=== PATIENT | male | born 1960 | race Caucasian/White ===

== ENCOUNTER 2022-07-06 08:06 | Day surgery (SDC) | payer SELFPAY, OTHER ==
[2022-07-06] VITALS (7 sets, daily range): BP systolic 104–118; BP diastolic 58–81; PULSE 67–84; RESP 16–18; TEMP 36.6; O2SAT 98–100; BMI 24.3
--- NOTE | 2022-07-06 08:19 | PCM.HP.BLA ---
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 Accompanied by: Caregiver Is patient in pain?: No Allergies No Known Allergies Allergy (Verified 06/23/22 13:12) Medications cholecalciferol (vitamin D3) 125 mcg (5,000 unit) capsule 125 mcg PO DAILY 06/17/22 [History Confirmed 06/23/22] digoxin 62.5 mcg (0.0625 mg) tablet 62.5 mcg PO DAILY 06/17/22 [History Confirmed 06/23/22] fluoxetine 40 mg capsule 80 mg PO QAM 06/17/22 [History Confirmed 06/23/22] guanfacine 2 mg tablet 2 mg PO DAILY 06/17/22 [History Confirmed 06/23/22] omega-3 fatty acids-fish oil 360 mg-1,200 mg capsule (Fish Oil) 1 cap PO DAILY 06/17/22 [History Confirmed 06/23/22] quetiapine 200 mg tablet 200 mg PO QHS 06/17/22 [History Confirmed 06/23/22] risperidone 4 mg tablet 4 mg PO BID 06/17/22 [History Confirmed 06/23/22] PFSH Medical History?(Updated 06/17/22 @ 16:14 by Alley Alva) Anxiety Depression Fatigue Surgical History? History of colectomy History of colonoscopy Social History? household members:? caregiver and other details: Lives with brother in law and sister, currently estranged from current occupational status:? unemployed HPI HPI HPI: 62-year-old gentleman presents to discuss a colonoscopy.? 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 This was performed in [place].? The patient currently is experiencing anemia and fatigue.? He does have anxiety and depression.? He is referred by MIRELLA Petty from the [facility] and a written copy of my surgical consult recommendations will return to her.? The patient is noted to have a hemoglobin of 11.7 and hematocrit of 36.2.? He denies any change in bowel habits.? By report he takes multiple naps per day. Patient does have some developmental delay.? When he had his bowel surgery and then takedown of his diverting colostomy all of that was done in [place].? He knows that he has a incisional midline hernia as a result.? He denies any bright red blood per rectum or melena. ROS General General: Yes fatigue; No weight change, appetite, colon cancer, breast cancer or weakness HEENT HEENT: No difficulty swallowing, eye injury, eye surgery, swollen glands or hoarseness Endo Endocrine: No thyroid disease, diabetes mellitus, thyroid cancer, Hair loss, heat intolerance or cold intolerance Skin Skin: No rash or changing moles Breast Breast: No left breast lump, right breast lump, nipple discharge, breast pain, abnormal mammogram, abnormal US or breast enlargement Musc Musculoskeletal: No back problems, arthritis, rheumatoid arthritis, gout or joint pain Cardio Cardiovascular: No murmur, pacemaker, heart disease, atrial fibrillation, high blood pressure, heart attack, heart stent, palpitations, shortness of breat with exertion or chest pain Psych Psychiatric: Yes depression and anxiety; No hearing voices Resp Respiratory: No shortness of breath, No sleep apnea, No cough, No COPD, No asthma, No emphysema and No wheezing Gastro Gastrointestinal: No abdominal pain, No nausea or vomiting, No diarrhea, No constipation, No blood in stool, No acid reflux, No hemorrhoids, No ulcers, No gallbladder problem and No black,tarry stools Ian Hematologic: No blood thinners, No blood disorders, No bleeding, Yes anemia and No blood clots Neuro Neurologic: No system reviewed and no additional complaints, except as documented, No as per HPI, No abnormal gait, No abnormal hearing, No abnormal movements, No abnormal speech, No behavioral changes, No burning sensations, No confusion, No convulsions, No disequilibrium, No dizziness, No localized weakness, No frequent falls, No headache(s), No lack of coordination, No loss of vision, No memory loss, No numbness, No other visual disturbances, No radicular pain, No restless legs, No sensory deficit, No syncope, No tingling, No tremor(s), No weakness and No other Exam Const General: cooperative, comfortable and no acute distress HENVT Head: normal to inspection Neck Neck: normal visual inspection Resp Effort & Inspection: normal respiratory effort Auscultation: clear to auscultation bilaterally Cardio Rate: regular rate Rhythm: regular rhythm GI Palpation: soft Other: Long midline incision with diffuse fascial defect in the mid abdomen.? Nontender.? Otherwise healed left lower quadrant stomal incision Musc Other: Mild cervical kyphosis Neuro General: patient alert Extrem General: no calf tenderness Psych Other: Patient demonstrates some developmental delay. Assessment and Plan Assessment and Plan (1) Anemia: ?Status:?Acute Plan Patient is accompanied by family today.? He does have some developmental delay.? The primary concern is overwhelming fatigue in addition to his mild anemia.? I propose for him a combined esophagogastroduodenoscopy with possible biopsy and colonoscopy with possible biopsy or polypectomy as indicated.? I believe trying to evaluate the patient's anemia would be pertinent.? I have discussed with the patient and family member however that I am not sure that this correlates with the degree of fatigue which she is describing requiring multiple naps.? There may be a need for ongoing further evaluation but based upon the anemia in and of itself I do feel that endoscopic evaluation is indicated. He has had an opportunity to ask and have questions answered.? We will schedule procedure at discretion.? I very much appreciate the kind opportunity of assisting with the surgical care Copy:MIRELLA Petty M.D., F.A.C.S. I have re-examined the patient. There are no clinical changes since date of exam. Jimbo Osborn M.D., F.A.C.S.
[2022-07-06] MEDS: Lactated Ringers 1,000 ML 15 ML IV (09:05)
--- NOTE | 2022-07-06 09:15 | IMM_PTH ---
PATIENT: KALI CALIX LOC: EN U#:[id number] AGE/SX: 62/M ROOM: RE07/06/[address]: Dr. Jimbo Osborn MD : 1960 BED: DIS: 07/06/2022 SPEC #: [id number] RECD: 07/06/22 12:48 STATUS: ROME REQ #: [id number] BETZY: 07/06/22 09:[address]: Jimbo Osborn DEPT: IMMUNOHISTOCHEMISTRY RECD BY: Jannet Briceño ENTERED: 07/06/22 12:48 SP TYPE: IMMUNO OTHR DR: Maggie Hager, SENIOR CREDIT ANALYST-C Tissues: A - Stomach, NOS Procedures: H Pylori (initial) PHYSICIAN & INSTITUTION [place] [id number] SPECIMEN INFORMATION: Tissue Source: A ? Antral biopsy Clinical Info: Anemia, fatigue Specimen Number: [id number] CPT code: 63622 METHODOLOGY: Deparaffinized sections of prefer/formalin-fixed tissue or PAP/DQ stained slides are incubated with monoclonal/polyclonal antibodies/oligonucleotide probes. Localization is made via biotin free immunoperoxidase method. Appropriate controls are performed and reacted as expected. Results on target cell population are indicated in the following table: RESULTS: ANTIBODY / CLONE RESULT Block A H Pylori (polyclonal) negative These tests were developed and their performance characteristics determined by [facility]. They may not have been cleared or approved by the U.S. Food and Drug Administration. The FDA has determined that such clearance or approval is not necessary. The above immunohistochemical/dualISH markers are ordered and reviewed by the Pathologist. INTERPRETATION: A. Antral biopsy: Negative for Helicobacter pylori organisms. SJ:leonard 07/07/2022
--- NOTE | 2022-07-06 09:15 | EGD_PTH ---
PATIENT: KALI CALIX LOC: EN U#:[id number] AGE/SX: 62/M ROOM: RE07/06/[address]: Dr. Jimbo Osborn MD : 1960 BED: DIS: 07/06/2022 SPEC #: [id number] RECD: 07/06/22 10:33 STATUS: ROME PAMELA #: [id number] BETZY: 07/06/22 09:[address]: Jimbo Osborn DEPT: SURGICAL PATHOLOGY RECD BY: Raeann Lundberg ENTERED: 07/06/22 12:18 SP TYPE: EGD BIOPSY OTHR DR: Maggie Hager, MAINTENANCE DEPARTMENT TECHNICIAN-C Tissues: A - Gastric mucous membrane B - Esophagus, NOS Procedures: Special Stain Group II Surgery Specimen Level IV Alcian Blue/PAS (control) HEADER OPERATION: Colonoscopy, EGD (MAC) and biopsy PRE-OP DIAGNOSIS: Anemia, fatigue TISSUE SUBMITTED: A ? Antral biopsy, H. pylori, B ? Distal esophagus biopsy MICROSCOPIC DIAGNOSIS A. Antral biopsy: Mild gastritis. See microscopic description and comment. B. Distal esophagus, biopsy: Fragments of gastroesophageal mucosa with chronic inflammation. Intestinal metaplasia (goblet cell metaplasia) not identified. See comment. SJ:leonard 07/07/2022 COMMENT A. The results of immunohistochemistry for Helicobacter pylori will be reported separately ([id number]). B. Alcian blue/PAS stain with matched control is used in the evaluation of the specimen. MICROSCOPIC DESCRIPTION Slides are reviewed. A. The specimen shows fragments of gastric mucosa with chronic inflammatory cell infiltrates in the lamina propria consisting of lymphocytes and plasma cells, consistent with mild chronic gastritis. GROSS DESCRIPTION A - Received in fixative is one container labeled with the patient's name and designated antral biopsy. The specimen consists of two irregular fragments of light juarez soft tissue that in aggregate measure 0.5 x 0.2 x 0.1 cm. The specimen is totally submitted in one cassette. B - Received in fixative is one container labeled with the patient's name and designated distal esophageal biopsy. The specimen consists of multiple irregular fragments of light juarez soft tissue that in aggregate measure 1.2 x 0.3 x 0.1 cm. The specimen is totally submitted in one cassette. / MORENO:leonard 07/06/2022 TC:3 CPT: 78600 x2, 33364
--- NOTE | 2022-07-06 09:56 | OP.CCLET_ITS ---
07/06/2022 Obinna Petty Re : Upper GI endoscopy procedure for Gregorio Carrion Dear Madan This procedure was performed on Wednesday, July 06, 2022. My impressions and recommendations are as follows: Impressions : - Reflux esophagitis. Biopsied. - Erythematous mucosa in the antrum. Biopsied. - Normal examined duodenum. Recommendations : - Discharge patient to home. - Resume previous diet. - Continue present medications. - Telephone my office for pathology results in 1 week. These findings are very mild at best and would not explain indigestion or abdominal pain or fatigue. My findings are described in the full procedure note, which is enclosed. If I can be of further assistance, please feel free to contact me at Doctor phone number(s): Work: . Sincerely, Jimbo Osborn MD 07/06/2022 9:55:43 AM This report has been signed electronically.
--- NOTE | 2022-07-06 09:56 | OP.EGD_ITS ---
Patient Name: Gregorio Carrion Procedure Date: 07/06/2022 9:18 AM Date of : 1960 Age: 62 Procedure: Upper GI endoscopy Indications: Iron deficiency anemia Providers: Jimbo Osborn MD Medicines: See the Anesthesia note for documentation of the administered medications Complications: No immediate complications. Procedure: Pre-Anesthesia Assessment: - Prior to the procedure, a History and Physical was performed, and patient medications and allergies were reviewed. The patient's tolerance of previous anesthesia was also reviewed. The risks and benefits of the procedure and the sedation options and risks were discussed with the patient. All questions were answered, and informed consent was obtained. Prior Anticoagulants: The patient has taken no previous anticoagulant or antiplatelet agents. ASA Grade Assessment: II - A patient with mild systemic disease. After reviewing the risks and benefits, the patient was deemed in satisfactory condition to undergo the procedure. After obtaining informed consent, the endoscope was passed under direct vision. Throughout the procedure, the patient's blood pressure, pulse, and oxygen saturations were monitored continuously. The colonoscope was introduced through the mouth, and advanced to the second part of duodenum. The upper GI endoscopy was accomplished without difficulty. The patient tolerated the procedure well. Scope In: 9:29:06 AM Scope Out: 9:35:16 AM Total Procedure Duration Time 0 hours 6 minutes 10 seconds Findings: Esophagitis with no bleeding was found 42 cm from the incisors. Biopsies were taken with a cold forceps for histology. Diffuse mildly erythematous mucosa without bleeding was found in the gastric antrum. Biopsies were taken with a cold forceps for histology. The examined duodenum was normal. Impression: - Reflux esophagitis. Biopsied. - Erythematous mucosa in the antrum. Biopsied. - Normal examined duodenum. Recommendation: - Discharge patient to home. - Resume previous diet. - Continue present medications. - Telephone my office for pathology results in 1 week. These findings are very mild at best and would not explain indigestion or abdominal pain or fatigue. Procedure Code(s): --- Professional --- 45182, Esophagogastroduodenoscopy, flexible, transoral; with biopsy, single or multiple Diagnosis Code(s): --- Professional --- K21.0, Gastro-esophageal reflux disease with esophagitis K31.89, Other diseases of stomach and duodenum D50.9, Iron deficiency anemia, unspecified CPT copyright 2017 [place] [employer]. All rights reserved. The codes documented in this report are preliminary and upon medical insurance coder review may be revised to meet current compliance requirements. Jimbo Osborn MD 07/06/2022 9:55:43 AM This report has been signed electronically. Number of Addenda: 0 Note Initiated On: 07/06/2022 9:18 AM
--- NOTE | 2022-07-06 10:01 | OP.COLON_ITS ---
Patient Name: Gregorio Carrion Procedure Date: 07/06/2022 9:35 AM Date of : 1960 Age: 62 Procedure: Colonoscopy Indications: Screening for colorectal malignant neoplasm Providers: Jimbo Osborn MD Medicines: See the Anesthesia note for documentation of the administered medications Patient Profile: Last Colonoscopy: date unknown. Complications: No immediate complications. Procedure: Pre-Anesthesia Assessment: - Prior to the procedure, a History and Physical was performed, and patient medications and allergies were reviewed. The patient's tolerance of previous anesthesia was also reviewed. The risks and benefits of the procedure and the sedation options and risks were discussed with the patient. All questions were answered, and informed consent was obtained. Prior Anticoagulants: The patient has taken no previous anticoagulant or antiplatelet agents. ASA Grade Assessment: II - A patient with mild systemic disease. After reviewing the risks and benefits, the patient was deemed in satisfactory condition to undergo the procedure. After I obtained informed consent, the scope was passed under direct vision. Throughout the procedure, the patient's blood pressure, pulse, and oxygen saturations were monitored continuously. The colonoscope was introduced through the anus and advanced to the cecum, identified by appendiceal orifice and ileocecal valve. The colonoscopy was performed without difficulty. The patient tolerated the procedure well. The quality of the bowel preparation was poor and unsatisfactory. The ileocecal valve was photographed. Scope In: 9:38:16 AM Scope Withdrawal Time 0 hours 3 minutes 43 seconds Scope Out: 9:49:40 AM Total Procedure Duration Time 0 hours 11 minutes 24 seconds Findings: The perianal and digital rectal examinations were normal. A large amount of stool was found in the entire colon, precluding visualization. Surgical anastomosis likely distal sigmoid--widely patent. Impression: - Preparation of the colon was poor. - Preparation of the colon was unsatisfactory. - Stool in the entire examined colon. No gross findings to explain patient fatigue/anemia - No specimens collected. Recommendation: - Discharge patient to home. - Resume previous diet. - Continue present medications. - Repeat colonoscopy based upon family and patient wishes. Patients mental disabilities may make obtaining an adequate bowel prep very difficult Procedure Code(s): --- Professional --- 20827, Colonoscopy, flexible; diagnostic, including collection of specimen(s) by brushing or washing, when performed (separate procedure) Diagnosis Code(s): --- Professional --- Z12.11, Encounter for screening for malignant neoplasm of colon CPT copyright 2017 [employer]. All rights reserved. The codes documented in this report are preliminary and upon associate artistic director review may be revised to meet current compliance requirements. Jimbo Osborn MD 07/06/2022 10:00:34 AM This report has been signed electronically. Number of Addenda: 0 Note Initiated On: 07/06/2022 9:35 AM
--- NOTE | 2022-07-06 10:01 | OP.CCLET_ITS ---
07/06/2022 Obinna Petty Re : Colonoscopy procedure for Gregorio Carrion Dear Madan This procedure was performed on Wednesday, July 06, 2022. My impressions and recommendations are as follows: Impressions : - Preparation of the colon was poor. - Preparation of the colon was unsatisfactory. - Stool in the entire examined colon. No gross findings to explain patient fatigue/anemia - No specimens collected. Recommendations : - Discharge patient to home. - Resume previous diet. - Continue present medications. - Repeat colonoscopy based upon family and patient wishes. Patients mental disabilities may make obtaining an adequate bowel prep very difficult My findings are described in the full procedure note, which is enclosed. If I can be of further assistance, please feel free to contact me at Doctor phone number(s): Work: . Sincerely, Jimbo Osborn MD 07/06/2022 10:00:34 AM This report has been signed electronically.
== END 2022-07-06 10:49 | disposition home or self-care (01) ==
LOC: EN 08:10 → AC 08:13
PROVIDERS: PCP Nurse Practitioner Family; Referring Provider Nurse Practitioner Family; Visit Provider Surgery
PROC: 0DJD8ZZ Inspection of Lower Intestinal Tract, Via Natural or Artificial Opening Endoscopic (ICD-10-PCS; CPT 45378; principal; 2022-07-06 09:10)
DX: Z12.11 Encounter for screening for malignant neoplasm of colon (principal); K21.00 Gastro-esophageal reflux disease with esophagitis, without bleeding; K31.89 Other diseases of stomach and duodenum; D50.9 Iron deficiency anemia, unspecified; F41.9 Anxiety disorder, unspecified; F32.A Depression, unspecified; R62.50 Unspecified lack of expected normal physiological development in childhood; M40.202 Unspecified kyphosis, cervical region; Z79.02 Long term (current) use of antithrombotics/antiplatelets; Z79.899 Other long term (current) drug therapy
CPT/HCPCS: 45378; 43239; 88305; 88313; 88342; J7120; J2405